=== PATIENT | female | born 1965 | race African-American/Black ===

== ENCOUNTER 2020-04-24 00:19 | Emergency (ER) | payer OTHER ==
[~2020-04-24] VITALS: Ht 162.6 cm; Wt 55.3 kg
[2020-04-24 00:26] VITALS: BP 173/110
--- NOTE | 2020-04-24 00:26 | NUR ---
ERMD EVALUATED PATIENT IN TRIAGE.
[2020-04-24] MEDS ORDERED: NITROGLYCERIN 0.4 MG TAB SL ONE (00:30)
[2020-04-24] MEDS ORDERED: ASPIRIN 325 MG TAB PO ONE (00:30)
--- NOTE | 2020-04-24 00:30 | NUR ---
PATIENT TAKEN TO BED 8 VIA W/C. EKG BEING PERFORMED AT BEDSIDE.
--- NOTE | 2020-04-24 00:42 | NUR ---
EKG PERFORMED AT BEDSIDE. EKG READS SINUS RHYTHM @ 77
--- NOTE | 2020-04-24 00:50 | NUR ---
SA[place] SWAB COLLECTED AND HANDED TO ATHLETIC TURF WORKER
--- NOTE | 2020-04-24 00:55 | NUR ---
LAB AT BEDSIDE
--- NOTE | 2020-04-24 00:58 | NUR ---
55 Y/O FEMALE BIB SELF FOR CHEST PAIN RAD. TO THE LEFT ARM; 10/10 PRESSURE LIKE PAIN. HR 77BPM. A/O X4; GCS 15; RESPIRATORY: 16 BPM; CLEAR BREATH SOUNDS BILATERALLY. DENIES N/V/D. SKIN IS INTACT. ERMD MADE AWARE. BED PLACED AT LOWEST SETTING; PLACED ON MONITOR. VSS. WILL CONTINUE TO MONITOR ALLERGIES:PCNS HX: [place] (MAY, 2019)
--- NOTE | 2020-04-24 01:06 | NUR ---
XRAY AT BEDSIDE
--- NOTE | 2020-04-24 01:06 | NUR ---
Zack corona in [facility] - 04/24/20 at 0106 by [place] XRAY AT BEDSIDE
[2020-04-24 01:12] LABS: BASOPHILS # (AUTO) 0.1 K/uL (0.00-0.22); BASOPHILS % (AUTO) 0.8 % (0.0-2.0); EOSINOPHILS # (AUTO) 0.1 K/uL (0-0.4); EOSINOPHILS % (AUTO) 0.8 % (0.0-4.0); HEMATOCRIT 39.2 % (36-48); HEMOGLOBIN 13.4 g/dL (12.0-16.0); LYMPHOCYTES # (AUTO) 2.5 K/uL (2.5-16.5); LYMPHOCYTES % (AUTO) 35.9 % (20.5-51.1); MEAN CORPUSCULAR HEMOGLOBIN 33 pg (27-31); MEAN CORPUSCULAR HGB CONC 34 g/dL (33-37); MEAN CORPUSCULAR VOLUME 97.5 fL (80-94); MONOCYTES # (AUTO) 0.5 K/uL (0.8-1.0); MONOCYTES % (AUTO) 6.7 % (1.7-9.3); NEUTROPHILS # (AUTO) 3.9 K/uL (1.8-7.7); NEUTROPHILS % (AUTO) 55.8 % (42.2-75.2); PLATELET COUNT (AUTO) 177 K/uL (140-450); RED BLOOD CELL COUNT(AUTO) 4.02 MIL/uL (4.20-5.40); RED CELL DISTRIBUTION WIDTH 14.5 % (11.6-13.7)
--- NOTE | 2020-04-24 01:12 | NUR ---
ERMD AT BEDSIDE
[2020-04-24] MEDS ORDERED: NITROGLYCERIN 0.4 MG TAB SL SCH (01:20)
[2020-04-24] MEDS ORDERED: KETOROLAC 15 MG/ML VIAL IVP ONE (01:40)
[2020-04-24] MEDS ORDERED: ACETAMINOPHEN EXTRA STRENGTH 500 MG TAB PO ONE (01:40)
[2020-04-24 01:47] LABS: MAGNESIUM 2.1 mg/dL (1.8-2.4)
[2020-04-24 01:50] LABS: ALBUMIN 3.3 g/dL (3.4-5.0); ANION GAP 14.6 (8-16); CARBON DIOXIDE 25.1 mmol/L (21-32); CREATININE 0.7 mg/dL (0.6-1.3); TOTAL BILIRUBIN 0.2 mg/dL (0.0-1.0)
[2020-04-24 01:51] LABS: POTASSIUM 2.7 mmol/L (3.5-5.1)
[2020-04-24] MEDS ORDERED: NACL 0.9% 1,000 ML IV ONE (02:00)
[2020-04-24] MEDS ORDERED: POTASSIUM CHLORIDE 20% 40 MEQ/15 ML UDC PO ONE (02:00)
[2020-04-24] MEDS ORDERED: KCL 20 MEQ/WATER INJ PREMIX 200 ML IV ONE (02:00)
--- NOTE | 2020-04-24 02:27 | NUR ---
PT STATES SHE UNABLE RECALL NAME OF MEDICATIONS SHE TAKES.
--- NOTE | 2020-04-24 02:30 | NUR ---
PT STATES SHE IS UNABLE TO TOLERATE THE POTASSIUM IV MEDICATION. LOWERED RATE TO 10ML/HR. TOLERATING WELL. WILL CONTINUE TO MONITOR.
--- NOTE | 2020-04-24 03:00 | NUR ---
OBTAINED MEDICATION LIST. FAXED OVER FROM [place].
[2020-04-24] MEDS ORDERED: ATOR20TA PO (03:23)
[2020-04-24] MEDS ORDERED: ACET-2619 PO (03:23)
[2020-04-24] MEDS ORDERED: TRAM50TA1 PO (03:23)
[2020-04-24] MEDS ORDERED: [UNRECOGNIZED DRUG - CODE] IJ (03:23)
[2020-04-24] MEDS ORDERED: LISI2.5T5 PO (03:23)
[2020-04-24] MEDS ORDERED: CLOP75TA26 PO (03:23)
[2020-04-24] MEDS ORDERED: VOL25 TOP (03:23)
[2020-04-24] MEDS ORDERED: METO25TA PO (03:23)
[2020-04-24] MEDS ORDERED: ASPI-1822 PO (03:23)
[2020-04-24] MEDS ORDERED: HYDR25CA1 PO (03:23)
[2020-04-24] MEDS ORDERED: MELA1TAB15 PO (03:23)
--- NOTE | 2020-04-24 05:19 | NUR ---
PT HAS EYES CLOSED, ON ROOM AIR. RESPIRATIONS EVEN AND UNLABORED. CHEST RISE IS SYMMETRICAL. WILL CONTINUE TO MONITOR.
--- NOTE | 2020-04-24 07:19 | NUR ---
REPORT GIVEN TO FAISAL HOOPER FOR CONTINUITY OF CARE
--- NOTE | 2020-04-24 08:30 | NUR ---
PT ELOPED FROM FACILITY. PT WALKED THROUGH MAIN HOSPITAL ENTRANCE. PT VERBALLY AGGRESSIVE AND STATES "FUCK YOU GUYS I'M LEAVING." PT LEFT FROM MAIN LOBBY ENTRANCE, WALKED AROUND TO ER LOBBY PARKING, GOT INTO HER CAR AND LEFT FROM FACILITY. CUTTING AND CREASING PRESS OPERATOR TORI MADE AWARE.
--- NOTE | 2020-04-24 09:17 | NUR ---
PATIENT HAD BREAKFAST, REQUEST TO GO TO BATHROOM, RN DISCONNECT PATIENT TO USE BATHROOM IN HALLWAY THEN SHE WENT BACK TO THE ROOM GOT DRESS AND ELOPED. ALERT, ORIENTED X4 AMBULATORY WITH STEADY GAIT, ER HIGHBALL PATIENT ON HER WAY OUT.
[2020-04-24 09:19] VITALS: BP 130/70
--- NOTE | 2020-04-28 13:20 | NUR ---
LATE ENTRY -- NORMAL SALINE INFUSION COMPLETED AT 0315 AND POTASSIUM INFUSION COMPLETED AT 3629 04/24/20
== END 2020-04-24 08:30 | disposition left against medical advice (07) ==
LOC: MED 00:19
DX: R07.9 Chest pain, unspecified (principal); E87.6 Hypokalemia; F10.129 Alcohol abuse with intoxication, unspecified; I10 Essential (primary) hypertension; F17.200 Nicotine dependence, unspecified, uncomplicated; Z88.0 Allergy status to penicillin; Z20.828 Contact with and (suspected) exposure to other viral communicable diseases; Y90.9 Presence of alcohol in blood, level not specified
CPT/HCPCS: 36415; 71045; 80053; 83735; 83880; 84484; 85025; 87426; 93005; 96365; 96366; 96375; 99285; G0482; J1885; J3480; J7030